=== PATIENT | female | born 1960 | race Caucasian/White ===

== ENCOUNTER → 2020-11-07 | Day surgery (SDC) | payer OTHER ==
[2020-11-06 11:21] LABS: COVID AG,FIA SOURCE NASOPHARYNGEAL
[~2020-11-07] MED LIST: ALBU6.7H9 IH; ATOR-2 PO; BECL10.62 IH; LEVO88TA7 PO; LISI-622 PO; SODIUM CHLORIDE 0.9% 1,000 ML IV ONE
== END | disposition home or self-care (01) ==
LOC: SURGERY 07:30
PROVIDERS: ATTEND Internal Medicine Critical Care Medicine
DX: R05 Cough (principal); Z53.8 Procedure and treatment not carried out for other reasons
CPT/HCPCS: 87426; C9803

== ENCOUNTER 2020-12-10 06:24 | Day surgery (SDC) | payer OTHER ==
[2020-12-09 11:07] LABS: COVID AG,FIA SOURCE NASOPHARYNGEAL
[~2020-12-10 06:24] MED LIST changes: -SODIUM CHLORIDE 0.9% 1,000 ML IV ONE
[2020-12-10] MEDS ORDERED: SODIUM CHLORIDE 0.9% 1,000 ML ONE (06:44)
[2020-12-10] MEDS ORDERED: SODIUM CHLORIDE 0.9% 1,000 ML IV ONE (07:00)
[2020-12-10 07:26] LABS: GLUCOMETER DEV NAME(LOC) SDS.; GLUCOSE,POINT OF CARE 209 MG/DL (70-110)
[2020-12-10] MEDS ORDERED: FentaNYL CITRATE PF 100 MCG/2 ML VIAL ONE (07:46)
[2020-12-10] MEDS ORDERED: MIDAZOLAM HCL 2 MG/2 ML VIAL ONE (07:46)
[2020-12-10] MEDS ORDERED: MethylPREDNISolone SOD SUCC 125 MG/2 ML VIAL IVP ONE (09:00)
[2020-12-10] MEDS ORDERED: MethylPREDNISolone SOD SUCC 125 MG/2 ML VIAL ONE (09:08)
[2020-12-10] MEDS ORDERED: BENZOCAINE 20% 50 MCG/SPRAY 57 GM ONE (17:14)
[2020-12-10] MEDS ORDERED: ALBUTEROL SULFATE 2.5 MG/0.5 ML NEB SOLUTION NEB ONE (17:14)
[2020-12-10] MEDS ORDERED: LIDOCAINE 4% 50 ML SOLUTION ONE (17:14)
[2020-12-10] MEDS ORDERED: LIDOCAINE 2% 30 ML JELLY ONE (17:14)
[2020-12-10] MEDS ORDERED: OXYGEN THERAPY IH SCH (20:00)
== END 2020-12-10 10:50 | disposition home or self-care (01) ==
LOC: SURGERY 06:24
PROVIDERS: ATTEND Internal Medicine Critical Care Medicine
DX: J38.4 Edema of larynx (principal); B37.0 Candidal stomatitis
CPT/HCPCS: 31623; 31624; 71045; 82962; 87070; 87101; 87206; 87220; 87426; 88184; 88185; 93005; C9803; J2250; J2930; J3010; J7030; 87015; 88108; 88312; J7613; Z7610